=== PATIENT | male | born 1995 | race Caucasian/White ===

== ENCOUNTER 2024-12-26 16:24 | Emergency (ER) | payer SELFPAY ==
[~2024-12-26] VITALS: Ht 177.8 cm; Wt 145.1 kg
[2024-12-26 17:19] LABS: BASO # 0.0 10*3/uL (0.0-0.1); BASO % 0.4 % (0.0-1.0); EOS # 0.1 10*3/uL (0.0-0.4); EOS % 1.7 % (1.0-4.0); MEAN CELL VOLUME 87.0 fl (80.0-94.0); MEAN CORPUSCULAR HGB 28.4 pg (27.0-31.0); MEAN PLATELET VOLUME 8.9 fl (9.6-12.3); MONO # 0.6 10*3/uL (0.1-1.0); MONO % 8.2 % (3.0-9.0); NEUT # 4.2 10*3/uL (2.3-7.9); NEUT % 58.3 % (47.0-73.0); NUCLEATED RED BLOOD CELL 0.0 % (0.0-0.0); NUCLEATED RED BLOOD CELL 0.0 10*3/uL (0.0-0.0); PLATELET COUNT AUTOMATED 222 10*3/uL (130-400); RED CELL DISTRI WIDTH 12.4 % (0-14.5)
[2024-12-26 17:33] LABS: BUN 14 mg/dl (9-23)
== END 2024-12-26 19:48 | disposition home or self-care (01) ==
LOC: ED 16:24
PROVIDERS: Internal Medicine
DX: K59.00 Constipation, unspecified (principal); M54.2 Cervicalgia; X50.1XXA Overexertion from prolonged static or awkward postures, initial encounter; Y93.89 Activity, other specified; Y92.89 Other specified places as the place of occurrence of the external cause; Y99.8 Other external cause status